=== PATIENT | male | born 1925 | race Caucasian/White ===

== ENCOUNTER → 2016-06-19 | Outpatient (CLI) | payer MEDICARE, BC | END | disposition home or self-care (01) | LOC: CECH 12:22 | DX: I25.10 Atherosclerotic heart disease of native coronary artery without angina pectoris (principal); I08.1 Rheumatic disorders of both mitral and tricuspid valves; Z95.1 Presence of aortocoronary bypass graft | CPT/HCPCS: 93306 ==

== ENCOUNTER → 2016-07-03 | Outpatient (CLI) | payer MEDICARE, BC ==
--- NOTE | ~2016-07-03 | EKG ---
PATIENT: CY ALMONTE UNIT #: [id number] Ventricular Rate: 99 BPM Atrial Rate: 250 BPM QRS Duration: 90 ms Q-T Interval: 284 ms QTC Calculation(Bezet): 364 ms Calculated R [place]: 65 degrees Calculated T [place]: 36 degrees Diagnosis Line: Atrial fibrillation Diagnosis Line: Abnormal ECG Diagnosis Line: No previous ECGs available Diagnosis Line: Confirmed by AARON KELELR MD ([id number]) on 07/07/2016 Diagnosis Line: 10:36:03 PM INTERPRETING MD: ARIANNA WONG
== END | disposition home or self-care (01) ==
LOC: CEKG 14:08
DX: I49.9 Cardiac arrhythmia, unspecified (principal)
CPT/HCPCS: 93005